=== PATIENT | female | born 1935 | race Caucasian/White ===

== ENCOUNTER 2016-11-03 12:36 | Emergency (ER) | payer OTHER ==
[~2016-11-03] VITALS: Ht 152.4 cm; Wt 44.1 kg
[~2016-11-03 12:36] MED LIST: ASPIR 8181 M1 PO; ATORVASTATIN CA40 MG PO; CALCIUM + D SO1 EACH PO; CALCIUM 500 +1 EAC2 PO; CALCIUM 500 MG1 EACH PO; CIPROFLOXACIN250 MG PO; FLAGYL500 MG PO; GLUCOPHAGE500 MG PO; LEVOFLOXACIN750 MG PO; LEVOTHYROXINE50 MCG PO; LIPITOR40 MG PO; LISINOPRIL2.5 MG PO; LISINOPRIL20 MG PO; MAG-OXIDE400 MG PO; METFORMIN HCL500 MG PO; METOPROLOL SUCC25 MG PO; MILK OF MAGN PO; OMEPRAZOLE40 M1 PO; PLAVIX75 MG PO; PRENATAL TABLE1 EACH PO; PROAIR HFA8.5 GM IH; RANITIDINE HCL150 MG PO; STADOL NASAL2.5 ML NS; SYMBICORT60 INHALAT IH; SYNTHROID50 MCG PO; TAMSULOSIN HCL0.4 MG PO; TOPAMAX25 MG PO; TOPROL XL25 MG PO; TRAMADOL HCL50 MG PO; ULTRAM50 MG PO; VESICARE10 MG PO; ZESTRIL20 MG PO
[2016-11-03] MEDS ORDERED: TYLENOL EXTRA500 MG PO (15:34)
[2016-11-03 17:37] VITALS: BP 103/59
== END 2016-11-03 17:57 ==
LOC: EME 12:36
DX: M25.551 Pain in right hip (principal); M16.0 Bilateral primary osteoarthritis of hip; M47.896 Other spondylosis, lumbar region; I10 Essential (primary) hypertension; E11.9 Type 2 diabetes mellitus without complications; Z95.5 Presence of coronary angioplasty implant and graft; Z79.02 Long term (current) use of antithrombotics/antiplatelets; Z79.82 Long term (current) use of aspirin
CPT/HCPCS: 72100; 73502; 99281; 99283

== ENCOUNTER 2017-04-03 13:23 | Emergency (ER) | payer OTHER ==
[~2017-04-03] VITALS: Ht 152.4 cm; Wt 41.5 kg
[~2017-04-03 13:23] MED LIST changes: +TYLENOL EXTRA500 MG PO
[2017-04-03] MEDS ORDERED: MOTRIN600 MG PO (16:22)
[2017-04-03] MEDS ORDERED: LIDODERM 5% P1 PATCH TD (16:22)
[2017-04-03] MEDS ORDERED: ROBAXIN750 MG PO (16:22)
[2017-04-03 17:12] VITALS: BP 97/52
== END 2017-04-03 17:37 ==
LOC: EME 13:23
DX: M47.812 Spondylosis without myelopathy or radiculopathy, cervical region (principal); S12.110A Anterior displaced Type II dens fracture, initial encounter for closed fracture; K21.9 Gastro-esophageal reflux disease without esophagitis; E11.9 Type 2 diabetes mellitus without complications; I10 Essential (primary) hypertension; Z98.61 Coronary angioplasty status; Z79.84 Long term (current) use of oral hypoglycemic drugs; Z79.82 Long term (current) use of aspirin; Z79.02 Long term (current) use of antithrombotics/antiplatelets
CPT/HCPCS: 70450; 72040; 72125; 99281; 99284